=== PATIENT | female | born 1965 | race Caucasian/White ===

== ENCOUNTER 2019-11-22 05:16 | Day surgery (SDC) | payer OTHER ==
[~2019-11-22] VITALS: Ht 162.6 cm; Wt 41.8 kg
[~2019-11-22 05:16] MED LIST: CYCLOPENTOLATE HCL 2% 2 ML OPHTHALMIC SOLUTION ONE; DICLOFENAC SODIUM 0.1% 2.5 ML OPHTHALMIC SOLUTION ONE; MOXIFLOXACIN HCL 0.5% 3 ML OPHTHALMIC SOLUTION ONE; PHENYLEPHRINE HCL 2.5% 2 ML OPHTHALMIC SOLUTION ONE; RINGERS SOLUTION,LACTATED 500 ML IV ONE; TETRACAINE HCL/PF 0.5% 4 ML OPHTHALMIC SOLUTION ONE
[2019-11-22] MEDS ORDERED: ACETAMINOPHEN 325 MG TABLET PO PRN (06:00)
[2019-11-22] MEDS ORDERED: RINGERS SOLUTION,LACTATED 500 ML IV ONE (06:00)
[2019-11-22] MEDS: TETRACAINE HCL/PF 0.5% 4 ML OPHTHALMIC SOLUTION OS SCH ×3 (06:07→06:18)
[2019-11-22] MEDS: PHENYLEPHRINE HCL 2.5% 2 ML OPHTHALMIC SOLUTION OS SCH ×3 (06:08→06:18)
[2019-11-22] MEDS: DICLOFENAC SODIUM 0.1% 2.5 ML OPHTHALMIC SOLUTION OS SCH ×3 (06:08→06:18)
[2019-11-22] MEDS: CYCLOPENTOLATE HCL 2% 2 ML OPHTHALMIC SOLUTION OS SCH ×3 (06:08→06:18)
[2019-11-22] MEDS: MOXIFLOXACIN HCL 0.5% 3 ML OPHTHALMIC SOLUTION OS SCH ×3 (06:08→06:18)
[2019-11-22] MEDS ORDERED: MIDAZOLAM HCL 2 MG/2 ML VIAL IVP ONE (12:00)
[2019-11-22] MEDS ORDERED: FentaNYL CITRATE-PF 100 MCG/2 ML VIAL IVP ONE (12:00)
[2019-11-22] MEDS ORDERED: PrednisoLONE ACETATE 1% 5 ML OPHTHALMIC SUSPENSION ONE (17:40)
[2019-11-22] MEDS ORDERED: LIDOCAINE/PF 1% 2 ML VIAL ONE (17:40)
[2019-11-22] MEDS ORDERED: NEOMYCIN/POLYMYXIN B/DEXAMETH 3.5 GM OPHTHALMIC OINTMENT ONE (17:40)
[2019-11-22] MEDS ORDERED: EPINEPHrine 1:1,000 [1 MG/ML] AMP ONE (17:40)
[2019-11-22] MEDS ORDERED: BALANCED SALT 15 ML OPHTHALMIC IRRIG.SOLN ONE (17:40)
[2019-11-22] MEDS ORDERED: POVIDONE-IODINE 10% 15 ML SOLUTION UD ONE (17:40)
[2019-11-22] MEDS ORDERED: HYALURONATE SODIUM 12 MG/ML 0.8 ML SYRINGE IO ONE (17:40)
== END 2019-11-22 08:10 | disposition home or self-care (01) ==
LOC: SURGERY 05:16
PROVIDERS: ATTEND Ophthalmology
DX: H26.8 Other specified cataract (principal); Z79.899 Other long term (current) drug therapy
CPT/HCPCS: 66984; 93005; J0171; J3490 ×2; J7120; V2632; J2250; J3010